=== PATIENT | male | born 1965 | race Caucasian/White ===

== ENCOUNTER 2016-04-21 02:25 | Emergency (ER) | payer OTHER ==
[~2016-04-21] VITALS: Ht 188 cm; Wt 83.9 kg
[2016-04-21] MEDS ORDERED: KETOROLAC TROMETHAMINE 60 MG/2 ML SYRINGE. IM ONE (02:45)
[2016-04-21] MEDS ORDERED: HYDROCODONE/APAP 5/325MG TABLET. PO ONE (02:45)
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
[2016-04-21 03:00] VITALS: BP 132/86
[2016-04-21] MEDS ORDERED: DIPHTH,PERTUSS(ACELL),TET TOX 0.5 ML DISP.SYRIN. VAX IM ONE (03:15)
[2016-04-21] MEDS ORDERED: HYDR-2666 PO (03:28)
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
== END 2016-04-21 03:57 | disposition home or self-care (01) ==
LOC: ER 02:25
DX: S00.83XA Contusion of other part of head, initial encounter (principal); R07.89 Other chest pain; F17.210 Nicotine dependence, cigarettes, uncomplicated; Y04.0XXA Assault by unarmed brawl or fight, initial encounter; Y93.89 Activity, other specified; Y92.89 Other specified places as the place of occurrence of the external cause; Y99.8 Other external cause status
CPT/HCPCS: 71020; 90471; 90715; 96372; 99284; J1885